=== PATIENT | female | born 1945 | race Caucasian/White ===

== ENCOUNTER 2025-07-29 15:41 | Outpatient (OUT) | payer MEDICARE, SELFPAY ==
--- NOTE | 2025-07-29 16:00 | CA_ITS ---
Patient Name: KAREEM MAR MR#: [id number] : 1945 Exam Date: 07/29/2025 Ordering Doctor: YAHAIRA NAVA ECHOCARDIOGRAM REPORT PROCEDURE: CA ECHO DOPPLER COMPLETE INDICATIONS: Cardiac murmur, hypertension COMPARISON: None. DESCRIPTION: COMPLETE ECHOCARDIOGRAM Real-time transthoracic echocardiography with 2D, M-mode, spectral and color flow Doppler performed. QUALITY: Technical quality was good. LEFT VENTRICLE: Normal chamber size. Normal left ventricular wall thickness. LV EF: Global left ventricular systolic function is normal; visually estimated ejection fraction is 60 to 65%. No significant wall motion abnormalities. DIASTOLIC: Diastolic function is indeterminate. ATRIAL SEPTUM: Visually appears intact. LEFT ATRIUM: Mild dilatation. RIGHT ATRIUM: Normal chamber size. RIGHT VENTRICLE: Normal chamber size. Normal right ventricular systolic function. TRICUSPID VALVE: Normal mobility and thickness. No stenosis with mild regurgitation. No evidence of pulmonary hypertension. RVSP 26 mmHg MITRAL VALVE: Normal mobility and thickness. No evidence of mitral valve stenosis. There is no mitral annular calcification. Mild mitral regurgitation. AORTIC VALVE: Normal trileaflet appearance. Thickened aortic valve. Normal leaflet mobility. No evidence of aortic valve stenosis. No aortic regurgitation. AORTIC ROOT: Normal diameter and appearance. Ascending aorta is normal in size. PULMONIC VALVE: Normal thickness and mobility. No stenosis. Trivial regurgitation. PERICARDIUM: No significant pericardial effusion. IVC: Collapses with inspiration. IVC is normal in size. CONCLUSION: 1. Global left ventricular systolic function is normal; visually estimated ejection fraction of is 60 to 65% 2. Normal right ventricular size and systolic function 3. Diastolic function is indeterminate 4. The left atrium is mildly dilated 5. Mild tricuspid regurgitation 6. Mild mitral regurgitation Adult Echocardiography Procedure Report Left Ventricle LVEDD (3.7 - 5.6 cm): 5.05 cm LVESD (2.2 - 4.0 cm): 3.18 cm LVIVS thickness (0.6 - 1.2 cm): 0.76 cm LVPW thickness (0.5 - 1.0 cm): 0.94 cm e': 0.09 m/s E - e': 7.80 LVOT Max Gradient: 4.10 mm[Hg] LVOT Area (cm2): 1.01 m/s Peak Velocity (LVOT): 1.01 m/s Mean Velocity (LVOT): 0.66 m/s LVOT Diameter 2.14 cm Left Ventricular Ejection Fraction: 51.08 % Left Atrium LA Volume Index (2D A2C): 38.30 ml/m2 Left Atrium Systolic Dimension: 3.68 cm Mitral Valve MV E to A Ratio: 0.90 Mitral Valve A-Wave Peak Velocity: 0.82 m/s Mitral Valve E-Wave Peak Velocity: 0.73 m/s Right Ventricle Aorta AO Root Diam: 2.99 cm Ascending Ao Diam: 3.10 cm Aortic Valve AoV Area (Peak Donny): 2.15 cm2, 2.15 cm2 AoV Area (VTI): 2.13 cm2, 2.13 cm2 Peak Velocity(Antegrade Flow): 1.69 m/s Peak Gradient(Antegrade Flow): 11.45 mm[Hg] Mean Velocity(Antegrade Flow): 1.14 m/s Mean Gradient(Antegrade Flow): 6.01 mm[Hg] Velocity Time Integral: 40.58 cm Tricuspid Valve Peak Velocity (Regurgitant Flow): 2.24 m/s, 2.39 m/s Pulmonic Valve Peak Velocity: 1.16 m/s Peak Gradient: 5.34 mm[Hg] Right Atrium Right Atrium Systolic Pressure: 32.96 ml, 32.96 ml Dictated by: Citlali Johnson M.D. on 07/30/2025 at 16:19 Approved by: Citlali Johnson M.D. on 07/30/2025 at 16:23
== END 2025-07-29 15:42 | disposition home or self-care (01) ==
PROVIDERS: PCP Family Medicine; Visit Provider Family Medicine
DX: R06.02 Shortness of breath (principal)
CPT/HCPCS: 93306